=== PATIENT | male | born 1965 ===

== ENCOUNTER 2017-12-15 11:19 | Emergency (ER) | payer OTHER ==
[2017-12-15 11:54] VITALS: BP 134/86; PULSE 51; RESP 17; TEMP 98.8; O2SAT 99
--- NOTE | 2017-12-15 14:00 | C.PDOC ---
History Of Present Illness 52 year old male presents to the ED for evaluation of an area of swelling to his umbilical region which has been present for the past year. Patient notes he usually experiencing pain to the area around 2-3 times/month, and this has prompted his visit today. Patient also notes he occasionally feel bloated and reports slight constipation. Patient denies fever, chills, nausea, vomiting. Time Seen by Provider: 12/15/17 13:15 Chief Complaint (Nursing): Abdominal Pain History Per: Patient History/Exam Limitations: no limitations Onset/Duration Of Symptoms: Days Current Symptoms Are (Timing): Still Present Quality Of Discomfort: "Pain" Associated Symptoms: denies: Fever, Chills, Nausea, Vomiting Additional History Per: Patient Past Medical History Reviewed: Historical Data, Nursing Documentation, Vital Signs Vital Signs: Last Vital Signs Temp 98.8 F 12/15/17 11:51 Pulse 51 L 12/15/17 11:51 Resp 17 12/15/17 11:51 BP 134/86 12/15/17 11:51 Pulse Ox 99 12/15/17 11:51 - Medical History PMH: No Chronic Diseases Surgical History: No Surg Hx Family History: States: Unknown Family Hx - Social History Hx Alcohol Use: No Hx Substance Use: No - Immunization History Hx Tetanus Toxoid Vaccination: No Hx Influenza Vaccination: No Hx Pneumococcal Vaccination: No Review Of Systems Constitutional: Negative for: Fever, Chills Gastrointestinal: Positive for: Constipation, Other (area of swelling to umbilical region that is occasionally painful ). Negative for: Nausea, Vomiting Physical Exam - Physical Exam Appears: Non-toxic, No Acute Distress Skin: Normal Color, Warm, Dry Head: Atraumatic, Normacephalic Eye(s): bilateral: Normal Inspection Oral Mucosa: Moist Neck: Supple Chest: Symmetrical, No Deformity, No Tenderness Cardiovascular: Rhythm Regular, No Murmur Respiratory: Normal Breath Sounds, No Rales, No Rhonchi, No Wheezing Gastrointestinal/Abdominal: Soft, No Tenderness, No Guarding, No Rebound, Hernia (small, reducible, umbilical ) Extremity: Normal ROM Neurological/Psych: Oriented x3, Normal Speech, Normal Cognition ED Course And Treatment O2 Sat by Pulse Oximetry: 99 (on RA) Pulse Ox Interpretation: Normal - Other Rad abdomen XR X-Ray: Viewed By Me, Read By Radiologist Interpretation: Date of service: 12/15/2017. HISTORY: umbilical hernia,. COMPARISON: No prior. FINDINGS: BOWEL: There is moderate amount of stool in the colon. No obstruction. No free air. BONES: Normal. OTHER FINDINGS: None. IMPRESSION: Constipation. Nonobstructive bowel gas pattern. Medical Decision Making Medical Decision Making: Impression: 52 year old male with small reducible umbilical hernia Plan: * abdomen XR * reassess and disposition Progress: Abdomen XR ordered and reviewed. On reassessment, patient is resting comfortably, showing no signs of distress and is stable for discharge. Patient is advised to follow up with his PMD/clinc within 1-2 days for further evaluation. Disposition Counseled Patient/Family Regarding: Studies Performed, Diagnosis, Need For Followup, Rx Given - Disposition Referrals: [facility] [Outside] Disposition: HOME/ ROUTINE Disposition Time: 13:57 Condition: STABLE Additional Instructions: No comas verona harkins. Prescriptions: Polyethylene Glycol 3350 [Miralax] 17 gm PO DAILY #30 packet Wheat Dextrin [Benefiber] 144 gm PO DAILY #1 bottle Instructions: Constipation, Adult (DC), Umbilical Hernia, Adult Forms: Gen Discharge Inst Venezuelan, [facility] (Venezuelan) - POA Present On Arrival: None - Clinical Impression Clinical Impression: Constipation, Umbilical hernia - Scribe Statement The provider has reviewed the documentation as recorded by the Scribe (Dina Leiva) Provider Attestation: All medical record entries made by the Scribe were at my direction and personally dictated by me. I have reviewed the chart and agree that the record accurately reflects my personal performance of the history, physical exam, medical decision making, and the department course for this patient. I have also personally directed, reviewed, and agree with the discharge instructions and disposition.
--- NOTE | 2017-12-15 14:41 | RAD ---
Date of service: 12/15/2017 HISTORY: umbilical hernia, COMPARISON: No prior. FINDINGS: BOWEL: There is moderate amount of stool in the colon. No obstruction. No free air. BONES: Normal. OTHER FINDINGS: None. IMPRESSION: Constipation. Nonobstructive bowel gas pattern.
== END 2017-12-15 14:34 | disposition home or self-care (01) ==
LOC: C.ER 11:19
DX: K42.9 Umbilical hernia without obstruction or gangrene (principal); K59.00 Constipation, unspecified

== ENCOUNTER 2018-08-07 09:09 | Emergency (ER) | payer OTHER ==
[2018-08-07 09:17] VITALS: BMI 28.0
[2018-08-07 09:18] VITALS: BP 115/74; PULSE 65; RESP 18; TEMP 98.5; O2SAT 98
--- NOTE | 2018-08-07 10:03 | C.PDOC ---
History Of Present Illness 53 year old male presents to ED with complaint of pain to the right posterior lower ribs for the past 2 weeks after a slip and fall. Patient states that he was wearing a back pack when he fell. He states that the pain is worse when he lifts objects and when he coughs. Patient has not received any treatment for the pain. He denies head impact, headache, loss of consciousness, back pain, abdominal pain, weakness, or numbness. Time Seen by Provider: 08/07/18 09:20 Chief Complaint (Nursing): Rib Injury History Per: Patient History/Exam Limitations: no limitations Onset/Duration Of Symptoms: Other (2 weeks) Current Symptoms Are (Timing): Still Present Quality: "Pain" Associated Symptoms: denies: Syncope Modifying Factors: None Exacerbating Factors: Exertion, Other (coughing) Past Medical History Reviewed: Historical Data, Nursing Documentation, Vital Signs Vital Signs: Last Vital Signs Temp 98.5 F 08/07/18 09:16 Pulse 65 08/07/18 09:16 Resp 18 08/07/18 09:16 BP 115/74 08/07/18 09:16 Pulse Ox 98 08/07/18 09:16 Primary Care Provider: FAMILY PROVIDER,NO - Medical History PMH: No Chronic Diseases Surgical History: No Surg Hx Family History: States: Unknown Family Hx - Social History Hx Alcohol Use: No Hx Substance Use: No - Immunization History Hx Tetanus Toxoid Vaccination: No Hx Influenza Vaccination: No Hx Pneumococcal Vaccination: No Review Of Systems Constitutional: Negative for: Fever, Chills, Weakness Eyes: Negative for: Vision Change Cardiovascular: Positive for: Chest Pain (right posterior lower ribs) Gastrointestinal: Negative for: Abdominal Pain Musculoskeletal: Negative for: Neck Pain, Back Pain Neurological: Negative for: Weakness, Numbness, Headache Physical Exam - Physical Exam Appears: Well, Non-toxic, No Acute Distress Skin: Normal Color, Warm, Dry Head: Atraumatic, Normacephalic Eye(s): bilateral: Normal Inspection Neck: Normal ROM, No Midline Cervical Tenderness, No Paracervical Tenderness, Supple Chest: Symmetrical, No Deformity, Tenderness (to the right posterior lateral T- 5, T-6, and T-7) Cardiovascular: Rhythm Regular, No Murmur Respiratory: No Accessory Muscle Use, No Rales, No Rhonchi, No Wheezing Back: No Vertebral Tenderness, No Paraspinal Tenderness Extremity: Capillary Refill (<2 seconds) Extremity: Bilateral: Atraumatic, Normal Color And Temperature, Normal ROM Pulses: Left Radial: Normal, Right Radial: Normal Neurological/Psych: Oriented x3, Normal Speech, Normal Cognition, Normal Motor, Normal Sensation Gait: Steady ED Course And Treatment O2 Sat by Pulse Oximetry: 98 (in RA) Pulse Ox Interpretation: Normal - Other Rad R ribs X-Ray: Interpreted by Me (+ tiny non-displ laterl T6/7) Progress Note: Right Ribs and Chest x-ray ordered for patient. Patient given Motrin PO. Patient is resting comfortably, in no acute distress and stable for discharge. Patient advised to follow up with clinic. Patient advised to return to ED if symptoms persist or worsen. Reevaluation Time: 10:02 Reassessment Condition: Improved Medical Decision Making Medical Decision Making: fall to R lateral side 2 wks ago costochondritis vs tiny non-displ fx's R lateral T6/7 Disposition Doctor Will See Patient In The: Office Counseled Patient/Family Regarding: Studies Performed, Diagnosis - Disposition Referrals: [facility] [Outside] [facility] [Outside] [facility] [Outside] [facility] [Outside] Disposition: HOME/ ROUTINE Disposition Time: 10:03 Condition: GOOD Additional Instructions: [place] 1/2 hora por hora, nada caliente ibuprofeno/Advil 400-600 mg cada 6 horas Sigue con la [facility] necessario Instructions: Rib Fractures in Adults, Bruised Rib (DC) Forms: [facility] ([place]an) Print Language: CITIZEN OF [place] - Clinical Impression Clinical Impression: Chest wall contusion - Scribe Statement The provider has reviewed the documentation as recorded by the Scribe (Estrellita Negron) All medical record entries made by the Scribe were at my direction and personally dictated by me. I have reviewed the chart and agree that the record accurately reflects my personal performance of the history, physical exam, medical decision making, and the department course for this patient. I have also personally directed, reviewed, and agree with the discharge instructions and disposition.
--- NOTE | 2018-08-07 10:18 | RAD ---
Date of service: 08/07/2018 PROCEDURE: Radiographs of the Chest and Right Ribs. HISTORY: R lateral ribs, fall 2 wks, T4/5 COMPARISON: None available. TECHNIQUE: Frontal radiograph of the chest and multiple oblique radiographs of the right ribs were obtained. 4 views obtained. FINDINGS: RIGHT RIBS: There is an acute nondisplaced fracture in the right posterior 10th rib. Bone alignment and mineralization are normal. LUNGS: The the lungs are well inflated and clear. PLEURA: No pneumothorax or pleural fluid. CARDIOVASCULAR: Normal cardiac size. No pulmonary vascular congestion. No aortic atherosclerotic calcification present OTHER FINDINGS: None. IMPRESSION: Acute nondisplaced fracture in the right posterior 10th rib. No pneumothorax or pleural effusion. The final report is tagged to the PA review folder.
== END 2018-08-07 10:10 | disposition home or self-care (01) ==
LOC: C.ER 09:09
DX: S20.219A Contusion of unspecified front wall of thorax, initial encounter (principal); W01.0XXA Fall on same level from slipping, tripping and stumbling without subsequent striking against object, initial encounter